=== PATIENT | male | born 1995 | race Caucasian/White ===

== ENCOUNTER 2019-12-13 16:25 | Outpatient (REF) | payer OTHER, SELFPAY ==
[2019-12-13 16:59] LABS: COVID-19 Test Negative (Negative)
== END 2019-12-13 16:26 | disposition home or self-care (01) ==
LOC: HO.LAB 16:25
PROVIDERS: Visit Provider Internal Medicine
DX: Z20.828 Contact with and (suspected) exposure to other viral communicable diseases (principal)
CPT/HCPCS: 87635

== ENCOUNTER 2019-12-18 06:50 | Outpatient (REF) | payer OTHER, SELFPAY ==
[2019-12-18 07:19] LABS: COVID-19 Test Negative (Negative)
== END 2019-12-18 06:51 | disposition home or self-care (01) ==
LOC: HO.LAB 06:50
PROVIDERS: Visit Provider Internal Medicine
DX: Z20.828 Contact with and (suspected) exposure to other viral communicable diseases (principal)
CPT/HCPCS: 87635

== ENCOUNTER 2020-01-02 15:51 | Outpatient (REF) | payer OTHER, SELFPAY ==
[2020-01-02 18:26] LABS: COVID-19 Test Negative (Negative)
== END 2020-01-02 15:52 | disposition home or self-care (01) ==
LOC: HO.LAB 15:51
PROVIDERS: Visit Provider Internal Medicine
DX: Z20.828 Contact with and (suspected) exposure to other viral communicable diseases (principal)
CPT/HCPCS: 87635; C9803

== ENCOUNTER 2020-01-06 11:33 | Emergency (ER) | payer OTHER, SELFPAY ==
[2020-01-06 11:50] VITALS: BP 168/88; PULSE 93; RESP 17; TEMP 36.6; O2SAT 97; BMI 30.9
--- NOTE | 2020-01-06 12:04 | ED.GENADULT ---
HPI - General Adult General Chief complaint: General Medical Stated complaint: cough Time Seen by Provider: 01/06/20 12:03 Source: patient Mode of arrival: ambulatory Limitations: no limitations History of Present Illness HPI narrative: Runny nose/congestion for 1 day. Had a negative COVID test on 01/02/2020 call though work due to the URI symptoms here for COVID-19 testing. Denies any chest pain shortness of breath. No fever. Location: face Severity: mild Relieving factors: none Exacerbating factors: none Associated symptoms: denies other symptoms Treatments prior to arrival: none Related Data Allergies Allergy/AdvReac Type Severity Reaction Status Date / Time No Known Allergies Allergy Verified 01/06/20 11:52 [No Known Allergies*] Review of Systems Review of Systems: Constitutional: No Weight loss, No Fever, No Chills, No Night Sweats, No Fatigue, No Malaise ENT/Mouth: No Rhinorrhea, No Swallowing Difficulty Eyes: No Eye Pain, No Swelling, No Redness, No Foreign Body, No Discharge, No Vision Changes Cardiovascular: No Chest Pain, No SOB, No Dyspnea on Exertion, No Orthopnea, No Edema, No Palpitations Respiratory: No Cough, No Sputum, No Wheezing Gastrointestinal: No Nausea, No Vomiting, No Diarrhea, No Constipation, No abdominal Pain Genitourinary: No Urinary Incontinence, No Urgency, No Flank Pain, No Urinary Flow Changes, No Hesitancy Musculoskeletal: No joint pain, No Myalgias, No Joint Swelling Skin: No Skin Lesions, No rash Neuro: No Weakness Psych: No Social Issues Heme/Lymph: No Bruising, No Bleeding,No Lymphadenopathy Endocrine: No Polyuria, No Polydipsia, No Temperature Intolerance Yes all other systems are reviewed and are negative [facility] Past Medical History Attestation statement: The following information was validated with the patient. Medical History (Updated 01/06/20 @ 12:53 by Cristiano Nicolas NP) No known health problems Social History Social History Advance Directives: No Advance Directives Information Provided: Yes Physical Exam Vital Signs: Vital Signs: Last Vital Signs Temp 97.8 F 01/06/20 11:50 Pulse 93 01/06/20 11:50 Resp 17 01/06/20 11:50 BP 168/88 H 01/06/20 11:50 Pulse Ox 97 01/06/20 11:50 Body Mass Index 30.9 Reviewed Const: General: cooperative and healthy appearing; No acute distress or intoxicated appearing Nutritional Appearance: average body habitus Orientation/consciousness: patient oriented x3 HENMT: Head: Yes normal to inspection Ears: hearing grossly normal bilaterally Eyes: General: appearance normal, both eyes and all related structures Visual Taylor: normal visual taylor by confrontation Neck: Neck: Yes normal visual inspection and No tender Thyroid: Thyroid normal Chest: Chest palpation & inspection: normal inspection of the chest Resp: Effort & Inspection: normal respiratory effort Cardio: Jugular venous distension: no JVD Skin: General skin exam: no rashes or lesions noted Neuro: General: patient oriented x3 Extrem: General: Yes normal to inspection Medical Decision Making Lab Data Labs: Lab Results 01/06/20 Range/Units 12:15 COVID-19 ([facility]) Negative (Negative) COVID-19 Clin Com See Note Discharge Plan Discharge Clinical Impression: Viral infection Patient Disposition: Home, Self-Care Referrals: Physician,Unknown [Primary Care Provider] - 1 week Discharge Date/Time: 01/06/20 13:00
[2020-01-06 12:40] LABS: COVID-19 Test Negative (Negative); IDNOW Serial# 9DD0AD1C
== END 2020-01-06 13:00 | disposition home or self-care (01) ==
PROVIDERS: Nurse Practitioner Primary Care; Emergency Provider Emergency Medicine
DX: B34.9 Viral infection, unspecified (principal); R05 Cough; Z20.828 Contact with and (suspected) exposure to other viral communicable diseases
CPT/HCPCS: 87635; 99283

== ENCOUNTER 2021-01-07 19:00 | Outpatient (REF) | payer OTHER, SELFPAY ==
[2021-01-07 19:30] LABS: COVID-19 Test Negative (Negative)
== END 2021-01-07 19:01 | disposition home or self-care (01) ==
LOC: HO.LAB 19:00
PROVIDERS: Visit Provider Internal Medicine
DX: Z20.822 Contact with and (suspected) exposure to COVID-19 (principal)
CPT/HCPCS: 36415; 87635

== ENCOUNTER 2021-02-16 18:46 | Outpatient (REF) | payer OTHER, SELFPAY ==
[2021-02-16 19:09] LABS: COVID-19 Test Positive (Negative)
== END 2021-02-16 18:47 | disposition home or self-care (01) ==
LOC: HO.LAB 18:46
PROVIDERS: Visit Provider Internal Medicine
DX: Z20.822 Contact with and (suspected) exposure to COVID-19 (principal)
CPT/HCPCS: 36415; 87635

== ENCOUNTER → 2021-12-11 13:17 | Outpatient (RCR) | payer OTHER, SELFPAY ==
[2020-03-10 10:00] LABS: SARS-COV-2 PCR UMBRL NEGATIVE
== END | disposition home or self-care (01) ==
LOC: HO.EMPCOV 03-08 07:44
PROVIDERS: Visit Provider Internal Medicine
DX: Z20.828 Contact with and (suspected) exposure to other viral communicable diseases (principal)
CPT/HCPCS: 36415; C9803; U0003

== ENCOUNTER 2023-09-12 18:13 | Emergency (ER) | payer OTHER, SELFPAY ==
[2023-09-12 18:15] VITALS: BP 143/95; PULSE 114; RESP 18; TEMP 36.8; O2SAT 96; BMI 31.7
--- NOTE | 2023-09-12 18:28 | ED.GENADULT ---
HPI - General Adult General Chief complaint: Wound/Laceration Stated complaint: left eye scratch- Time Seen by Provider: 09/12/23 18:21 History of Present Illness ED Provider: Yash Wolfe PA-C HPI narrative: [age] year healthy who states no past medical history presents to the ED for left facial scratch. 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 Patient denies glasses scratching his eye. Patient denies any eye pain, blurry vision, photophobia, or dizziness. Patient denies any head trauma. Patient denies any blunt trauma from patient's onto his body. Patient presently denies any complaints. Patient is up-to-date with tetanus Related Data Allergies Allergy/AdvReac Type Severity Reaction Status Date / Time No Known Allergies Allergy Verified 09/12/23 18:16 [No Known Allergies*] Review of Systems Review of Systems: facial scratch Yes all other systems are reviewed and are negative [facility] Past Medical History Medical History (Updated 09/13/23 @ 00:01 by Background Daemon) No known health problems Social History Social History Advance Directives: No Advance Directives Information Provided: No Do you have a plan to hurt others: No Plan Physical Exam ED Vital Signs: Vital Signs - 24 hr 09/12/23 18:15 Temperature 98.3 F Pulse Rate 114 H Respiratory Rate 18 Blood Pressure 143/95 H Pulse Oximetry 96 Oxygen Delivery Method Room Air BMI result Body Mass Index 31.7 Const General: cooperative, healthy appearing, comfortable, no acute distress, well developed, alert, awake and Physically active Orientation/consciousness: patient oriented x3 HENMT Head: Yes normal to inspection, Yes No palpable skull fracture present, Yes normocephalic, Yes atraumatic and No abrasion Head images: 1. Abrasion. No active bleeding. No crepitus or ecchymosis. No deformity. Eyes General: appearance normal, both eyes and all related structures Neck Neck: Yes normal visual inspection, Yes full ROM, Yes no lymphadenopathy, Yes no meningeal signs, Yes trachea midline, Yes supple, No anterior neck swelling and No tender Chest Chest palpation & inspection: normal inspection of the chest and normal palpation of entire chest wall Resp Effort & Inspection: normal respiratory effort and able to speak in complete sentences Auscultation: clear to auscultation bilaterally Cardio Jugular venous distension: no JVD Heart sounds: S1 normal heart sound present and S2 normal heart sound present GI Inspection: Yes normal to inspection Palpation (GI): Soft to palpation, not firm, nontender, no guarding and not rigid General: Yes no CVA tenderness Back/Spine/Pelvis Back: no CVA tenderness and No back tenderness Skin General skin exam: no rashes or lesions noted, elasticity normal and turgor normal Neuro General: patient oriented x3, gait normal, tone normal, moves all extremities, Normal light touch and pain sensation, no meningeal signs, no focal motor deficits, CN's II-XI intact bilaterally and normal sensation to monofilament Extrem General: Yes normal to inspection, Yes full ROM and Yes capillary refill normal Psych Appearance: grossly normal, well kempt and not disheveled Medical Decision Making Medical Decision Making MDM Narrative: 28-year-old male presents to ED for left facial abrasion without any blunt trauma. 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 Patient denies any eye pain. Patient denies any change in vision. Not suspect a corneal abrasion or corneal ulcer. Not suspecting globe rupture. Not suspecting facial fracture. Not suspecting brain bleed. Patient explained worrisome signs and informed to return to ED immediately. Repeat heart rate improved. Differential Diagnosis Differential Diagnoses: The differential diagnosis associated with the presentation includes Admission/Observation Consideration of admission/observation: Escalation of care including admission/observation considered Independent Historian Clinical information obtained from an independent historian. History obtained from or confirmed by: Other (Patient) External Record Review External record reviewed: Other (Prior visit) Critical Care Time Critical Care Time Critical Care Time: No Discharge Plan Discharge Clinical Impression: Abrasion Patient Disposition: Home, Self-Care Instructions: Abrasion (ED) Additional Instructions: Return to ED immediately for any facial pain, redness, swelling, bluish black discoloration, eye pain, eye redness, eye discharge, photophobia, dizziness, headache, fever, chills, change in vision, loss of vision, or any other concerning symptoms. Recommend follow-up with primary care provider Discharge Date/Time: 09/12/23 20:28 Print Language: Slovak
== END 2023-09-12 20:28 | disposition home or self-care (01) ==
LOC: HO.ED 18:40
PROVIDERS: Emergency Provider Emergency Medicine
DX: S05.02XA Injury of conjunctiva and corneal abrasion without foreign body, left eye, initial encounter (principal); X58.XXXA Exposure to other specified factors, initial encounter; Y93.89 Activity, other specified; Y92.89 Other specified places as the place of occurrence of the external cause; Y99.0 Civilian activity done for income or pay
CPT/HCPCS: 99281; 99282